=== PATIENT | female | born 1965 | race Hispanic/Latino ===

== ENCOUNTER 2016-10-03 06:34 | Emergency (ER) | payer MEDICAID ==
[2016-10-03 06:57] VITALS: BP 121/90; RESP 18; TEMP 98.4
[2016-10-03 07:06] VITALS: O2SAT 97
[2016-10-03 07:15] VITALS: PULSE 86
--- NOTE | 2016-10-03 07:15 | ED PDOC ---
HPI: General Adult Time Seen by Provider: 10/03/16 07:00 Chief Complaint (Nursing): Flu-like Symptoms Chief Complaint (Provider): cough, congestion, sore throat History Per: Patient History/Exam Limitations: no limitations Additional Complaint(s): 50yo female complaining of cough, congestion and sore throat. Patient has been taking Advil and Xyzal. Also reports general body aches, soreness. Woke up this morning with some shortness of breath and chills but no fever, sputum, chest pain. No abdominal pain or vomit. PMD: [facility] Past Medical History Reviewed: Historical Data, Nursing Documentation, Vital Signs Vital Signs: Last Vital Signs Temp 98.4 F 10/03/16 06:54 Pulse 86 10/03/16 07:15 Resp 18 10/03/16 06:54 BP 121/90 10/03/16 06:54 Pulse Ox 97 10/03/16 11:05 - Medical History PMH: Anxiety, Depression, Gall Bladder Disease (gallstones), HTN, Post Traumatic Stress Disorder, Seizures (LAST ONE ON 11/2015) Denies: Hypercholesterolemia, Chronic Kidney Disease Other PMH: cirrhosis - Surgical History Surgical History: Cholecystectomy, Endoscopy Other surgeries: knee repair, colonoscopy - Family History Family History: States: Unknown Family Hx - Social History Current smoker - smoking cessation education provided: Yes ("not packs") Alcohol: None (states quit drinking 6 months ago) Drugs: Denies - Immunization History Hx Tetanus Toxoid Vaccination: No Hx Influenza Vaccination: Yes (2014) Hx Pneumococcal Vaccination: No - Home Medications Home Medications: Ambulatory Orders Medication Instructions Recorded traZODone [trazODONE HYDROCHLORIDE] 50 mg PO HS 12/26/15 Lisinopril [Zestril] 10 mg PO DAILY #30 tab 12/30/15 traZODone [Desyrel] 50 mg PO HS PRN #30 tab 12/30/15 Escitalopram [Lexapro] 5 mg PO DAILY 03/15/16 Naproxen [Naprosyn] 500 mg PO BID PRN #20 tablet 06/10/16 Albuterol HFA [Ventolin HFA 90 1 - 2 puff IH Q4H PRN #1 bottle 10/03/16 mcg/actuation (8 g)] Ibuprofen [Motrin] 600 mg PO Q6H PRN #20 tab 10/03/16 - Allergies Allergies/Adverse Reactions: Allergies Allergy/AdvReac Type Severity Reaction Status Date / Time Penicillins Allergy Unknown RASH Verified 10/03/16 06:50 iodine Allergy RASH Verified 10/03/16 06:50 Review of Systems ROS Statement: Except As Marked, All Systems Reviewed And Found Negative Constitutional: Positive for: Chills, Other (body aches, soreness). Negative for: Fever Cardiovascular: Negative for: Chest Pain Respiratory: Positive for: Cough, Shortness of Breath. Negative for: Sputum Physical Exam - Reviewed Nursing Documentation Reviewed: Yes Vital Signs Reviewed: Yes - Physical Exam Appears: Positive for: Well, Non-toxic, No Acute Distress Head Exam: Positive for: ATRAUMATIC, NORMAL INSPECTION, NORMOCEPHALIC Skin: Positive for: Warm, Dry Eye Exam: Positive for: EOMI, PERRL ENT: Positive for: Normal ENT Inspection Neck: Positive for: Normal Cardiovascular/Chest: Positive for: Regular Rate, Rhythm Respiratory: Positive for: Normal Breath Sounds. Negative for: Rales, Wheezing , Respiratory Distress Gastrointestinal/Abdominal: Positive for: Soft. Negative for: Tenderness Extremity: Positive for: Normal ROM Neurologic/Psych: Positive for: Alert, Oriented - ECG O2 Sat by Pulse Oximetry: 97 (RA) Pulse Ox Interpretation: Normal Medical Decision Making Medical Decision Makin Impression cough, congestion, body aches; rule out influenza vs pneumonia Plan: CXR influenza A B duoneb reassess 1100 CXR IMpression from radiology report No active disease. No significant interval change compared to the prior examination(s). 1105 labs and XR report reviewed. patient is stable for discharge. Follow up with PMD. Diagnosis and discharge instructions explained to the patient. REturn if symptoms worsen. Disposition - Clinical Impression Clinical Impression: Cough - Patient ED Disposition Is Patient to be Admitted: No Counseled Patient/Family Regarding: Studies Performed, Diagnosis, Need For Followup - Disposition Referrals: [facility] [Outside] Julián Calderón MD [Primary Care Provider] - Disposition: Routine/Home Disposition Time: 09:45 Condition: IMPROVED Additional Instructions: follow up with your primary doctor in 1-2 days return to the ED with any worsening or concerning symptoms. Prescriptions: Albuterol HFA [Ventolin HFA 90 mcg/actuation (8 g)] 1 - 2 puff IH Q4H PRN #1 bottle PRN Reason: Wheezing Ibuprofen [Motrin] 600 mg PO Q6H PRN #20 tab PRN Reason: Pain, Moderate (4-7) Instructions: Cold Symptoms (ED) Forms: [facility] ED School/Work Excuse Additional Comments - Additional Comments Additional Comments: Scribe Attestation: Documented by Patrick Azevedo acting as a scribe for Carroll Salas MD. Provider Scribe Attestation: All medical record entries made by the Scribe were at my direction and personally dictated by me. I have reviewed the chart and agree that the record accurately reflects my personal performance of the history, physical exam, medical decision making, and the department course for this patient. I have also personally directed, reviewed, and agree with the discharge instructions and disposition.
[2016-10-03] MEDS ORDERED: Albuterol-Ipratrop 3 mg / 0.5 (3 ml) UD INH STA (07:33)
[2016-10-03] MEDS ORDERED: Albuterol-Ipratrop 3 mg / 0.5 (3 ml) UD ONE (07:34)
--- NOTE | 2016-10-03 09:34 | RAD ---
HISTORY: Cough. COMPARISON: 11/26/2015. TECHNIQUE: Chest PA and lateral FINDINGS: LUNGS: No active pulmonary disease. PLEURA: No significant pleural effusion identified. No pneumothorax apparent. CARDIOVASCULAR: Normal. OSSEOUS STRUCTURES: No significant abnormalities. VISUALIZED UPPER ABDOMEN: Normal. OTHER FINDINGS: None. IMPRESSION: No active disease. No significant interval change compared to the prior examination(s).
== END 2016-10-03 09:30 | disposition home or self-care (01) ==
LOC: H.ER 06:34
DX: R05 Cough (principal); J02.9 Acute pharyngitis, unspecified; R06.02 Shortness of breath; F17.200 Nicotine dependence, unspecified, uncomplicated; F32.9 Major depressive disorder, single episode, unspecified; F41.9 Anxiety disorder, unspecified; F43.10 Post-traumatic stress disorder, unspecified; I10 Essential (primary) hypertension; K74.60 Unspecified cirrhosis of liver; Z88.0 Allergy status to penicillin

== ENCOUNTER 2017-03-17 09:02 | Emergency (ER) | payer MEDICAID ==
[2017-03-17 09:07] VITALS: BMI 22.2
[2017-03-17 09:08] VITALS: BP 129/84; PULSE 61; RESP 20; TEMP 97.3; O2SAT 99
--- NOTE | 2017-03-17 09:58 | ED PDOC ---
Lower Extremity Pain/Injury Time Seen by Provider: 03/17/17 09:25 Chief Complaint (Nursing): Lower Extremity Problem/Injury Chief Complaint (Provider): Lower extremity injury History Per: Patient History/Exam Limitations: no limitations Onset/Duration Of Symptoms: Days (x1, last night) Current Symptoms Are (Timing): Still Present Pain Scale Rating Of: 9 Additional Complaint(s): Cristina Garner is a 51 year old female, with a past medical history of anxiety, hypertension and seizures, who presents to the emergency department for left foot injury onset last night. Patient reports that a picture frame fell on her left foot. She states that she wasn't wearing shoes. She took an advil last night with mild relief of pain. She is able to ambulate on foot. She denies any fever or chills. No further medical complaints. PMD: Julián Calderón Past Medical History Reviewed: Historical Data, Nursing Documentation, Vital Signs Vital Signs: Last Vital Signs Temp 97.3 F L 03/17/17 09:08 Pulse 61 03/17/17 09:08 Resp 20 03/17/17 09:08 BP 129/84 03/17/17 09:08 Pulse Ox 99 03/17/17 09:08 - Medical History PMH: Anxiety, Depression, Gall Bladder Disease (gallstones), HTN, Post Traumatic Stress Disorder, Seizures (LAST ONE ON 11/2015) Denies: Hypercholesterolemia, Chronic Kidney Disease - Surgical History Surgical History: Cholecystectomy, Endoscopy - Family History Family History: States: Unknown Family Hx - Social History Current smoker - smoking cessation education provided: Yes (light smoker >10 cigarettes daily) Alcohol: None Drugs: Denies - Immunization History Hx Tetanus Toxoid Vaccination: No Hx Influenza Vaccination: Yes (2014) Hx Pneumococcal Vaccination: No - Home Medications Home Medications: Ambulatory Orders Medication Instructions Recorded traZODone [trazODONE HYDROCHLORIDE] 50 mg PO HS 12/26/15 Lisinopril [Zestril] 10 mg PO DAILY #30 tab 12/30/15 traZODone [Desyrel] 50 mg PO HS PRN #30 tab 12/30/15 Escitalopram [Lexapro] 5 mg PO DAILY 03/15/16 Naproxen [Naprosyn] 500 mg PO BID PRN #20 tablet 06/10/16 Albuterol HFA [Ventolin HFA 90 1 - 2 puff IH Q4H PRN #1 bottle 10/03/16 mcg/actuation (8 g)] Ibuprofen [Motrin] 600 mg PO Q6H PRN #20 tab 10/03/16 Acetaminophen with Codeine 1 tab PO Q6H PRN #10 tab 03/17/17 [Tylenol with Codeine No. 3 300 mg-30 mg] Sulfamethoxazole/Trimethoprim 1 tab PO BID #14 tab 03/17/17 [Bactrim DS 800 mg-160 mg] - Allergies Allergies/Adverse Reactions: Allergies Allergy/AdvReac Type Severity Reaction Status Date / Time Penicillins Allergy Unknown RASH Verified 03/17/17 09:16 iodine Allergy RASH Verified 03/17/17 09:16 Review of Systems ROS Statement: Except As Marked, All Systems Reviewed And Found Negative Constitutional: Negative for: Fever, Chills Musculoskeletal: Positive for: Foot Pain (left) Physical Exam - Reviewed Nursing Documentation Reviewed: Yes Vital Signs Reviewed: Yes - Physical Exam Appears: Positive for: Non-toxic Head Exam: Positive for: ATRAUMATIC, NORMAL INSPECTION, NORMOCEPHALIC Skin: Positive for: Normal Color, Warm, Dry Eye Exam: Positive for: EOMI, Normal appearance, PERRL Neck: Positive for: Normal, Painless ROM, Supple Cardiovascular/Chest: Positive for: Regular Rate, Rhythm. Negative for: Murmur Respiratory: Positive for: Normal Breath Sounds. Negative for: Respiratory Distress Extremity: Positive for: Other (left foot linear abrasion on the first MTP area. ecchymosis on first digit and distal foot). Negative for: Normal ROM ( decreased ROM secondary to pain. ), Deformity (no obvious deformity. No bleeding or crepitus) Neurologic/Psych: Positive for: Alert, Oriented - ECG O2 Sat by Pulse Oximetry: 99 (RA) Pulse Ox Interpretation: Normal Medical Decision Making Medical Decision Making: Initial Impression: left foot injury Initial Plan: --Motrin tab 600 mg PO --Foot left 3 views routine [RAD] --reevaluation 1057 Foot X-ray FINDINGS: BONES: There is an acute comminuted intra-articular fracture in the proximal phalanx of the great toe. Bone alignment and mineralization are normal. JOINTS: Normal. SOFT TISSUES: Normal. OTHER FINDINGS: None. IMPRESSION: Acute comminuted intra-articular fracture in the proximal phalanx of the great toe. Pt evaluated by Podiatry in ED. Scribe Attestation: Documented by Carson Banda, acting as a scribe for Andreina Denis MD Provider Scribe Attestation: All medical record entries made by the Scribe were at my direction and personally dictated by me. I have reviewed the chart and agree that the record accurately reflects my personal performance of the history, physical exam, medical decision making, and the department course for this patient. I have also personally directed, reviewed, and agree with the discharge instructions and disposition. Disposition - Clinical Impression Clinical Impression: Phalanx fracture, foot, Abrasion of foot - Disposition Referrals: Podiatry Clinic [Outside] Disposition: Routine/Home Disposition Time: 11:38 Condition: STABLE Prescriptions: Acetaminophen with Codeine [Tylenol with Codeine No. 3 300 mg-30 mg] 1 tab PO Q6H PRN #10 tab PRN Reason: Pain, Severe (8-10) Sulfamethoxazole/Trimethoprim [Bactrim DS 800 mg-160 mg] 1 tab PO BID #14 tab Instructions: Foot Fracture in Adults (ED), Abrasion (ED) Forms: [employer] (Bahraini), [facility] ED School/Work Excuse
[2017-03-17] MEDS ORDERED: Oxycodone/Acetaminophen 5/325 mg Tab PO STA (10:44)
--- NOTE | 2017-03-17 10:58 | RAD ---
PROCEDURE: Left Foot Radiographs. HISTORY: Object fell on foot COMPARISON: None. FINDINGS: BONES: There is an acute comminuted intra-articular fracture in the proximal phalanx of the great toe. Bone alignment and mineralization are normal. JOINTS: Normal. SOFT TISSUES: Normal. OTHER FINDINGS: None. IMPRESSION: Acute comminuted intra-articular fracture in the proximal phalanx of the great toe.
[2017-03-17] MEDS ORDERED: Oxycodone/Acetaminophen 5/325 mg Tab ONE (11:01)
--- NOTE | 2017-03-17 11:30 | CP.PCM.CON ---
History of Present Illness - History of Present Illness History of Present Illness: 51 y/o female with PMHx of HTN, anxiety and breast cancer seen at bedside in ED for left foot big toe pain and swelling. Pt states she dropped a large picture frame on it last night, and noticed some bleeding. Pt states she put a bandage on it and went to sleep. Pt states she woke up today and had a difficult time putting weight down on the left foot. Pt denies F/C/N/V/CP/SOB at this time. PSH: right knee surgery, breast lumpectomy All: PCNs, iodine contrast dye Social: 5 cigs/day; denies EtOH or illicit drug use Review of Systems - Review of Systems All systems: reviewed and no additional remarkable complaints except (per HPI) Past Patient History - Infectious Disease Hx of Infectious Diseases: None - Past Medical History & Family History Past Medical History?: Yes - Past Social History Alcohol: None Drugs: Denies - CARDIAC Hx Hypercholesterolemia: No Hx Hypertension: Yes - PULMONARY Hx Respiratory Disorders: No - NEUROLOGICAL Hx Seizures: Yes (LAST ONE ON 11/2015) - HEENT Hx HEENT Problems: No - RENAL Hx Chronic Kidney Disease: No - ENDOCRINE/METABOLIC Hx Endocrine Disorders: No - HEMATOLOGICAL/ONCOLOGICAL Hx Cancer: Yes (BREAST WITH RADIATION) Hx Cirrhosis: Yes - INTEGUMENTARY Hx Dermatological Problems: No - MUSCULOSKELETAL/RHEUMATOLOGICAL Hx Musculoskeletal Disorders: No - GASTROINTESTINAL Hx Gall Bladder Disease: Yes (gallstones) - GENITOURINARY/GYNECOLOGICAL Hx Genitourinary Disorders: No - PSYCHIATRIC Hx Anxiety: Yes Hx Depression: Yes Hx Post Traumatic Stress Disorder: Yes - SURGICAL HISTORY Hx Cholecystectomy: Yes - ANESTHESIA Hx Anesthesia: Yes Hx Anesthesia Reactions: No Hx Malignant Hyperthermia: No Meds Home Medications: Home Medication List Medication Instructions Recorded Confirmed Type Acetaminophen with Codeine 1 tab PO Q6H PRN #10 tab 03/17/17 Rx [Tylenol with Codeine No. 3 300 mg-30 mg] Sulfamethoxazole/Trimethoprim 1 tab PO BID #14 tab 03/17/17 Rx [Bactrim DS 800 mg-160 mg] Allergies/Adverse Reactions: Allergies Allergy/AdvReac Type Severity Reaction Status Date / Time Penicillins Allergy Unknown RASH Verified 03/17/17 09:16 iodine Allergy RASH Verified 03/17/17 09:16 Physical Exam - Constitutional Appears: Well, Non-toxic, No Acute Distress - Extremities Exam Additional comments: Left lower extremity focused exam: Vasc: DP/PT pulses palpable 2/4. Temperature gradient warm to warm. Localized non pitting edema noted to dorsum of foot and surrounding hallux. CFT < 3 sec to all digits Derm: Ecchymosis and erythema noted to dorsomedial aspect of midfoot, extending distally to dorsal IPJ of hallux. Ecchymosis extends to proximal aspect of L 2nd digit. 2cm linear transverse superficial abrasion noted to dorsum of 1st MPJ. No malodor, no purulence expressed, no tunneling or undermining, no probe to bone Neuro: Protective sensation grossly intact Ortho: Moderate tenderness upon palpation of hallux. Patient unable to perform active or passive dorsi or plantarflexion of hallux. All other joints of foot and ankle ROM are WNL Results - Vital Signs Recent Vital Signs: Last Vital Signs Temp 97.3 F L 03/17/17 09:08 Pulse 61 03/17/17 09:08 Resp 20 03/17/17 09:08 BP 129/84 03/17/17 09:08 Pulse Ox 99 03/17/17 11:24 Assessment & Plan - Assessment and Plan (Free Text) Assessment: 51 y/o female with left foot great toe proximal phalanx nondisplaced comminuted intraarticular fracture secondary to trauma Plan: Pt seen and evaluated in ED Discussed plan with attending Dr. Avendano Tetanus status confirmed with pt due to small break in skin Cleansed superficial abrasion with saline Reviewed x-rays - reveal two longitudinal radiolucent fracture lines to left hallux proximal phalanx, intraarticular and nondisplaced in nature Applied posterior splint to LLE and dispensed crutches Advised patient to keep splint clean, dry and intact until next visit Pt advised to take Tylenol as needed for pain and not to bear any weight on the left foot Pt to follow up in [facility] clinic on 03/[address] Avendano
[2017-03-17] MEDS ORDERED: Tmp-Smz 800 mg-160 mg DS Tab PO STA (11:38)
[2017-03-17] MEDS ORDERED: Tmp-Smz 800 mg-160 mg DS Tab ONE (12:24)
== END 2017-03-17 12:30 | disposition home or self-care (01) ==
LOC: H.ER 09:02
DX: S92.412A Displaced fracture of proximal phalanx of left great toe, initial encounter for closed fracture (principal); W22.8XXA Striking against or struck by other objects, initial encounter; Y92.89 Other specified places as the place of occurrence of the external cause; F32.9 Major depressive disorder, single episode, unspecified; F43.10 Post-traumatic stress disorder, unspecified; I10 Essential (primary) hypertension; K74.60 Unspecified cirrhosis of liver; Z85.3 Personal history of malignant neoplasm of breast; Z88.0 Allergy status to penicillin

== ENCOUNTER 2017-05-24 15:44 | Emergency (ER) | payer MEDICAID ==
[2017-05-24 15:45] VITALS: BMI 22.2
[2017-05-24 16:38] VITALS: RESP 16; O2SAT 100
--- NOTE | 2017-05-24 18:37 | ED PDOC ---
HPI: Hypertension/Hypotension Time Seen by Provider: 05/24/17 17:58 Chief Complaint (Nursing): High Blood Pressure Chief Complaint (Provider): High Blood Pressure History Per: Patient History/Exam Limitations: no limitations Onset/Duration Of Symptoms: Hrs (Today) Current Symptoms Are (Timing): Still Present Associated Symptoms: denies: Chest Pain, Dyspnea Additional Complaint(s): Cristina Garner is a 51 year old female, with a past medical history of HTN, who presents to the emergency department for evaluation of high blood pressure onset today. Patient reports she went to podiatry clinic for evaluation of toe, but they told her blood pressure was too high for an evaluation. Patient has been compliant with Losartan. She has no active complaints. She denies any fever , chills, chest pain, shortness of breath, HUFF paresthesias, weakness. PMD: Julián Calderón Past Medical History Reviewed: Historical Data, Nursing Documentation, Vital Signs Vital Signs: Last Vital Signs Temp Pulse 94 H 05/24/17 16:35 Resp 16 05/24/17 16:35 BP 152/102 H 05/24/17 16:35 Pulse Ox 100 05/24/17 16:35 - Medical History PMH: Anxiety, Depression, Gall Bladder Disease (gallstones), HTN, Post Traumatic Stress Disorder, Seizures (LAST ONE ON 11/2015) Denies: Hypercholesterolemia, Chronic Kidney Disease - Surgical History Surgical History: Cholecystectomy, Endoscopy - Family History Family History: States: Unknown Family Hx - Immunization History Hx Tetanus Toxoid Vaccination: No Hx Influenza Vaccination: Yes (2014) Hx Pneumococcal Vaccination: No - Home Medications Home Medications: Ambulatory Orders Medication Instructions Recorded traZODone [trazODONE HYDROCHLORIDE] 50 mg PO HS 12/26/15 Lisinopril [Zestril] 10 mg PO DAILY #30 tab 12/30/15 traZODone [Desyrel] 50 mg PO HS PRN #30 tab 12/30/15 Escitalopram [Lexapro] 5 mg PO DAILY 03/15/16 Naproxen [Naprosyn] 500 mg PO BID PRN #20 tablet 06/10/16 Albuterol HFA [Ventolin HFA 90 1 - 2 puff IH Q4H PRN #1 bottle 10/03/16 mcg/actuation (8 g)] Ibuprofen [Motrin] 600 mg PO Q6H PRN #20 tab 10/03/16 Acetaminophen with Codeine 1 tab PO Q6H PRN #10 tab 03/17/17 [Tylenol with Codeine No. 3 300 mg-30 mg] Sulfamethoxazole/Trimethoprim 1 tab PO BID #14 tab 03/17/17 [Bactrim DS 800 mg-160 mg] - Allergies Allergies/Adverse Reactions: Allergies Allergy/AdvReac Type Severity Reaction Status Date / Time Penicillins Allergy Unknown RASH Verified 03/17/17 09:16 iodine Allergy RASH Verified 03/17/17 09:16 Review of Systems ROS Statement: Except As Marked, All Systems Reviewed And Found Negative Constitutional: Negative for: Fever, Chills Cardiovascular: Negative for: Chest Pain Respiratory: Negative for: Shortness of Breath Neurological: Negative for: Headache Physical Exam - Reviewed Nursing Documentation Reviewed: Yes Vital Signs Reviewed: Yes - Physical Exam Appears: Positive for: Well, Non-toxic, No Acute Distress Head Exam: Positive for: ATRAUMATIC, NORMAL INSPECTION, NORMOCEPHALIC Skin: Positive for: Normal Color, Warm, Dry Eye Exam: Positive for: Normal appearance, EOMI, PERRL Neck: Positive for: Painless ROM, Supple Cardiovascular/Chest: Positive for: Regular Rate, Rhythm. Negative for: Murmur Respiratory: Positive for: Normal Breath Sounds (clear auscultation b/l). Negative for: Respiratory Distress Gastrointestinal/Abdominal: Positive for: Normal Exam, Soft. Negative for: Tenderness, Guarding, Rebound Back: Positive for: Normal Inspection. Negative for: L CVA Tenderness, R CVA Tenderness, Vertebral Tenderness Extremity: Positive for: Normal ROM. Negative for: Tenderness, Pedal Edema, Deformity, Swelling Neurologic/Psych: Positive for: Alert, Oriented (x3), Gait (steady). Negative for: Motor/Sensory Deficits, Aphasia, Facial Droop, Other (no focal deficits) - ECG Interpretation Of ECG: NSR @ 76, no ST-T changes. O2 Sat by Pulse Oximetry: 100 (RA) Pulse Ox Interpretation: Normal Medical Decision Making Medical Decision Making: Initial Impression: Hypertension Initial Plan: --EKG --Catapres 0.1 mg PO --reevaluation Scribe Attestation: Documented by Carson Banda, acting as a scribe for Andreina Denis MD Provider Scribe Attestation: All medical record entries made by the Scribe were at my direction and personally dictated by me. I have reviewed the chart and agree that the record accurately reflects my personal performance of the history, physical exam, medical decision making, and the department course for this patient. I have also personally directed, reviewed, and agree with the discharge instructions and disposition. Disposition - Clinical Impression Clinical Impression: Hypertension - Disposition Referrals: [facility] [Outside] Disposition: Routine/Home Disposition Time: 18:52 Condition: GOOD Instructions: Hypertension (ED) Forms: [employer] (Turkmen), [facility] ED School/Work Excuse
[2017-05-24 19:20] VITALS: BP 129/90; PULSE 81
--- NOTE | 2017-05-26 18:32 | CARD ---
APPROVED REPORT EKG Measurement Heart [id number] <Conclusion> Normal sinus rhythm Normal ECG
== END 2017-05-24 19:19 | disposition home or self-care (01) ==
LOC: H.ER 15:44
DX: I10 Essential (primary) hypertension (principal); F32.9 Major depressive disorder, single episode, unspecified; F43.10 Post-traumatic stress disorder, unspecified; Z88.0 Allergy status to penicillin

== ENCOUNTER 2017-08-14 11:26 | Inpatient (IN) | payer MEDICAID ==
[2017-08-14 11:27] VITALS: BMI 22.2
--- NOTE | 2017-08-14 12:41 | ED PDOC ---
HPI: Psych/Substance Abuse Time Seen by Provider: 08/14/17 12:17 Chief Complaint (Nursing): Psychiatric Evaluation Chief Complaint (Provider): Depression, tired History Per: Patient Onset/Duration Of Symptoms: Days Additional Complaint(s): 51 yo female with history of HTN and depression, currently taking lexapro, presents with worsening depression. Pt reports body pain and feeling tired which she states is generally due to worsening depression. Pt denies SI/HI. Pt also takes trazadone for sleeping and clonazepam as needed. Past Medical History Reviewed: Historical Data, Nursing Documentation, Vital Signs Vital Signs: Last Vital Signs Temp 97.8 F 08/14/17 11:45 Pulse 76 08/14/17 11:45 Resp 19 08/14/17 11:45 BP 104/68 08/14/17 11:45 Pulse Ox 100 08/14/17 11:45 - Medical History PMH: Anxiety, Depression, Gall Bladder Disease (gallstones), HTN, Post Traumatic Stress Disorder, Seizures (LAST ONE ON 11/2015) Denies: Hypercholesterolemia, Chronic Kidney Disease - Surgical History Surgical History: Cholecystectomy, Endoscopy - Family History Family History: States: Unknown Family Hx - Immunization History Hx Tetanus Toxoid Vaccination: No Hx Influenza Vaccination: Yes (2014) Hx Pneumococcal Vaccination: No - Home Medications Home Medications: Ambulatory Orders Medication Instructions Recorded Cetirizine HCl [All Day Allergy 10 mg PO HS 08/14/17 Relief] Escitalopram [Lexapro] 20 mg PO HS 08/14/17 Ibuprofen [Motrin Tab] 600 mg PO Q6 PRN 08/14/17 Losartan [Cozaar] 50 mg PO DAILY 08/14/17 clonazePAM [Klonopin] 1 mg PO Q12 PRN 08/14/17 hydroCHLOROthiazide [Hydrodiuril] 25 mg PO DAILY 08/14/17 traZODone [Desyrel] 100 mg PO HS 08/14/17 - Allergies Allergies/Adverse Reactions: Allergies Allergy/AdvReac Type Severity Reaction Status Date / Time Penicillins Allergy Unknown RASH Verified 03/17/17 09:16 iodine Allergy RASH Verified 03/17/17 09:16 Physical Exam - Reviewed Nursing Documentation Reviewed: Yes Vital Signs Reviewed: Yes - Physical Exam Appears: Positive for: Well, Non-toxic, No Acute Distress Head Exam: Positive for: ATRAUMATIC, NORMAL INSPECTION, NORMOCEPHALIC Skin: Positive for: Normal Color, Warm, DRY Eye Exam: Positive for: Normal appearance ENT: Positive for: Normal ENT Inspection Neck: Positive for: Normal, Painless ROM Cardiovascular/Chest: Positive for: Regular Rate, Rhythm Respiratory: Positive for: CNT, Normal Breath Sounds Gastrointestinal/Abdominal: Positive for: Normal Exam, Soft. Negative for: Tenderness Back: Positive for: Normal Inspection Extremity: Positive for: Normal ROM Neurologic/Psych: Positive for: Alert, Oriented - Laboratory Results Result Diagrams: 08/14/17 13:18 08/14/17 13:18 - ECG O2 Sat by Pulse Oximetry: 100 Pulse Ox Interpretation: Normal Medical Decision Making Medical Decision Making: Hypokalemia - Pt given K-Dur in ER. Crisis evaluation completed. Disposition - Clinical Impression Clinical Impression: Depression, Hypokalemia - Patient ED Disposition Is Patient to be Admitted: Yes Counseled Patient/Family Regarding: Diagnosis - Disposition Disposition Time: 15:00 Condition: STABLE Forms: [employer] ([place])
[2017-08-14 13:23] LABS: BASO % 0.4 % (0.0-2.0); EOS # 0.2 K/uL (0.0-0.7); EOS % 2.3 % (0.0-4.0); HEMOGLOBIN 13.8 g/dL (12.0-16.0); LYMPH # 1.6 K/uL (1.0-4.3); LYMPH % 15.8 % (20.0-40.0); MEAN CELL VOLUME 92.7 fl (81.0-99.0); MEAN CORPUSCULAR HEMOGLOBIN 31.6 pg (27.0-31.0); MEAN CORPUSCULAR HGB CONC 34.1 g/dL (33.0-37.0); MEAN PLATELET VOLUME 9.1 fl (7.2-11.7); MONO # 0.3 K/uL (0.0-0.8); MONO % 3.3 % (0.0-10.0); NEUT # 7.7 K/uL (1.8-7.0); NEUT % 78.2 % (50.0-75.0); NRBC % 0.1 % (0.0-0.0); RBC 4.37 Mil/uL (3.80-5.20); RED CELL DISTRIBUTION WIDTH 13.4 % (11.5-14.5); WHITE BLOOD COUNT 9.8 K/uL (4.8-10.8)
[2017-08-14 13:43] LABS: ALB/GLOB RATIO 1.3 (1.0-2.1); ALBUMIN 4.5 g/dL (3.5-5.0); ALT/SGPT 22 U/L (9-52); AST/SGOT 26 U/L (14-36); BLOOD UREA NITROGEN 18 mg/dl (7-17); CALCIUM 9.3 mg/dL (8.4-10.2); GFR AFRICAN-AMERICAN > 60; GFR NON-AFRICAN AMERICAN > 60
[2017-08-14 14:39] LABS: URINE BACTERIA RARE (<OCC); URINE BILIRUBIN NEGATIVE (NEGATIVE); URINE BLOOD NEGATIVE (NEGATIVE); URINE CLARITY CLEAR (Clear); URINE COLOR STRAW (YELLOW); URINE GLUCOSE (UA) NEG (Normal); URINE LEUKOCYTE ESTERASE NEG Leu/uL (Negative); URINE PROTEIN NEGATIVE (NEGATIVE); URINE UROBILINOGEN 0.2-1.0 mg/dL (0.2-1.0)
[2017-08-14] MEDS ORDERED: Potassium Chloride 20 mEq ER Tab PO STA (14:53)
--- NOTE | 2017-08-14 15:01 | RAD ---
HISTORY: admission - 3NP COMPARISON: 10/03/2016 TECHNIQUE: Chest PA and lateral FINDINGS: LUNGS: No active pulmonary disease. PLEURA: No significant pleural effusion identified. No pneumothorax apparent. CARDIOVASCULAR: No radiographic findings to suggest acute or significant cardiovascular disease. OSSEOUS STRUCTURES: No significant abnormalities. VISUALIZED UPPER ABDOMEN: Normal. OTHER FINDINGS: None. IMPRESSION: No active disease. No significant interval change compared to the prior examination(s).
[2017-08-14] MEDS ORDERED: Potassium Chloride 20 mEq ER Tab PO ONE ×2 (15:20→15:25)
[2017-08-14 15:54] LABS: BENZODIAZEPINES, UR NEGATIVE (NEGATIVE)
[2017-08-14 15:58] LABS: BARBITURATES, UR NEGATIVE (NEGATIVE); OPIATES, UR NEGATIVE (NEGATIVE); PHENCYCLIDINE, UR NEGATIVE (NEGATIVE)
[2017-08-14 21:55] VITALS: O2SAT 99
[2017-08-14] MEDS ORDERED: DiphenhydrAMINE 50 mg/ml Inj IM PRN (23:39)
[2017-08-14] MEDS ORDERED: Magnesium Hydroxide Susp 30 ml UD PO PRN (23:39)
[2017-08-14] MEDS ORDERED: Alum-Mag Hydrox-Simethicone Susp (30 mL) PO PRN (23:39)
--- NOTE | 2017-08-15 00:50 | PCM.BM ---
<Anabel Farmer - Last Filed: 08/15/17 00:49> Treatment assets and liabiliti Patient Assests: cooperative, insightful, motivated, resourceful, self-reliant, ADL independent, negotiates basic needs, good past tx response Patient Liabilities: financial problems, poor support system, medical problems - Milieu Protocol Maintain good personal hygiene: daily Encourage regular showers, other Remind patient to perform daily oral care Conduct patient checks and document Observation sheet: Q15 minutes Maintain personal safety: every shift Educate patient to report safety concerns to staff, every shift Monitor environment for contraband/sharps Medication safety: Monitor for expected outcome, potential side effects: every shift, Assess barriers to learning: every shift, Assess readiness for medication education: every shift <Agustin Recinos - Last Filed: 08/16/17 10:03> - Diagnosis (1) Depression Status: Acute Interventions: 08/16/17 10:03 psychotherapy pharmacotherapy
[2017-08-15 06:15] LABS: HDL CHOLESTEROL 46 MG/DL (30-70)
[2017-08-15 06:26] LABS: LDL CHOLESTEROL 56 mg/dL (0-129)
--- NOTE | 2017-08-15 07:34 | CARD ---
APPROVED REPORT EKG Measurement Heart [id number] <Conclusion> Normal sinus rhythm Normal ECG
[2017-08-15 08:36] LABS: T4 6.44 ug/dl (5.5-11.0)
[2017-08-15 09:27] VITALS: RESP 18
--- NOTE | 2017-08-15 12:17 | CP.PCM.CON ---
Past Patient History - Infectious Disease Hx of Infectious Diseases: None - Past Medical History & Family History Past Medical History?: Yes - Past Social History Smoking Status: Light Smoker < 10 Cigarettes Daily - CARDIAC Hx Hypercholesterolemia: No Hx Hypertension: Yes - PULMONARY Hx Respiratory Disorders: No - NEUROLOGICAL Hx Seizures: Yes (LAST ONE ON 11/2015) - HEENT Hx HEENT Problems: No - RENAL Hx Chronic Kidney Disease: No - ENDOCRINE/METABOLIC Hx Endocrine Disorders: No - HEMATOLOGICAL/ONCOLOGICAL Hx Cancer: Yes (BREAST WITH RADIATION) Hx Cirrhosis: Yes - INTEGUMENTARY Hx Dermatological Problems: No - MUSCULOSKELETAL/RHEUMATOLOGICAL Hx Musculoskeletal Disorders: No - GASTROINTESTINAL Hx Gall Bladder Disease: Yes (gallstones) - GENITOURINARY/GYNECOLOGICAL Hx Genitourinary Disorders: No - PSYCHIATRIC Hx Substance Use: Yes - SURGICAL HISTORY Hx Cholecystectomy: Yes - ANESTHESIA Hx Anesthesia: Yes Hx Anesthesia Reactions: No Hx Malignant Hyperthermia: No Meds Allergies/Adverse Reactions: Allergies Allergy/AdvReac Type Severity Reaction Status Date / Time Penicillins Allergy Unknown RASH Verified 03/17/17 09:16 iodine Allergy RASH Verified 03/17/17 09:16 - Medications Medications: Current Medications Acetaminophen (Tylenol 325mg Tab) 650 mg PO Q4 PRN PRN Reason: Pain, moderate (4-7) Al Hydrox/Mg Hydrox/Simethicone (Maalox Plus 30 Ml) 30 ml PO Q4 PRN PRN Reason: Dyspepsia Diphenhydramine HCl (Benadryl) 50 mg IM Q6 PRN PRN Reason: Extrapyramidal S/S Unable PO Diphenhydramine HCl (Benadryl) 50 mg PO Q6 PRN PRN Reason: Extrapyramidal Symptoms Diphenhydramine HCl (Benadryl) 50 mg PO HS PRN PRN Reason: Sleep Haloperidol (Haldol) 5 mg PO Q4 PRN PRN Reason: Agitation Haloperidol Lactate (Haldol) 5 mg IM Q4 PRN PRN Reason: Agitation, Unable to Take PO Lorazepam (Ativan) 2 mg IM Q4 PRN PRN Reason: Anxiety/Agitation,Unable PO Lorazepam (Ativan) 2 mg PO Q4 PRN PRN Reason: Anxiety/Agitation Magnesium Hydroxide (Milk Of Magnesia) 30 ml PO HS PRN PRN Reason: Constipation Nicotine (Nicoderm Cq) 1 patch TD DAILY EUSEBIO Results - Vital Signs Recent Vital Signs: Last Vital Signs Temp 97.3 F L 08/15/17 09:00 Pulse 63 08/15/17 09:00 Resp 18 08/15/17 09:00 BP 100/62 08/15/17 09:00 Pulse Ox 99 08/14/17 21:35 - Labs Result Diagrams: 08/14/17 13:18 08/14/17 13:18 Labs: Laboratory Results - last 24 hr 08/14/17 08/14/17 08/14/17 05:15 13:18 13:18 WBC 9.8 D RBC 4.37 Hgb 13.8 D Hct 40.5 MCV 92.7 MCH 31.6 H MCHC 34.1 RDW 13.4 Plt Count 176 MPV 9.1 Neut % (Auto) 78.2 H Lymph % (Auto) 15.8 L [place] % (Auto) 3.3 Eos % (Auto) 2.3 Baso % (Auto) 0.4 Neut # (Auto) 7.7 H Lymph # (Auto) 1.6 [place] # (Auto) 0.3 Eos # (Auto) 0.2 Baso # (Auto) 0.0 Sodium 146 Potassium 2.9 L Chloride 97 L Carbon Dioxide 29 Anion Gap 23 H BUN 18 H Creatinine 0.9 Est GFR ( Amer) > 60 Est GFR (Non-Af Amer) > 60 Random Glucose 74 Calcium 9.3 Total Bilirubin 0.5 AST 26 ALT 22 Alkaline Phosphatase 70 Total Protein 7.9 Albumin 4.5 Globulin 3.4 Albumin/Globulin Ratio 1.3 Triglycerides 61 D Cholesterol 131 LDL Cholesterol Direct 56 HDL Cholesterol 46 Thyroxine (T4) TSH 3rd Generation 0.58 Urine Color Urine Clarity Urine pH Ur Specific [place] Urine Protein Urine Glucose (UA) Urine Ketones Urine Blood Urine Nitrate Urine Bilirubin Urine Urobilinogen Ur Leukocyte Esterase Urine RBC (Auto) Urine Microscopic WBC Urine Bacteria Urine Opiates Screen Urine Methadone Screen Ur Barbiturates Screen Ur Phencyclidine Scrn Ur Amphetamines Screen U Benzodiazepines Scrn U Oth Cocaine Metabols U Cannabinoids Screen Alcohol, Quantitative < 10 08/14/17 08/14/17 08/15/17 14:14 15:30 07:49 WBC RBC Hgb Hct MCV MCH MCHC RDW Plt Count MPV Neut % (Auto) Lymph % (Auto) [place] % (Auto) Eos % (Auto) Baso % (Auto) Neut # (Auto) Lymph # (Auto) [place] # (Auto) Eos # (Auto) Baso # (Auto) Sodium Potassium Chloride Carbon Dioxide Anion Gap BUN Creatinine Est GFR ( Amer) Est GFR (Non-Af Amer) Random Glucose Calcium Total Bilirubin AST ALT Alkaline Phosphatase Total Protein Albumin Globulin Albumin/Globulin Ratio Triglycerides Cholesterol LDL Cholesterol Direct HDL Cholesterol Thyroxine (T4) 6.44 TSH 3rd Generation 0.78 Urine Color Straw Urine Clarity Clear Urine pH 6.0 Ur Specific [place] 1.006 Urine Protein Negative Urine Glucose (UA) Neg Urine Ketones Negative Urine Blood Negative Urine Nitrate Negative Urine Bilirubin Negative Urine Urobilinogen 0.2-1.0 Ur Leukocyte Esterase Neg Urine RBC (Auto) < 1 Urine Microscopic WBC 1 Urine Bacteria Rare Urine Opiates Screen Negative Urine Methadone Screen Negative Ur Barbiturates Screen Negative Ur Phencyclidine Scrn Negative Ur Amphetamines Screen Negative U Benzodiazepines Scrn Negative U Oth Cocaine Metabols Negative U Cannabinoids Screen Negative Alcohol, Quantitative
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
[2017-08-16 09:12] VITALS: BP 99/72; PULSE 75; TEMP 97.9
--- NOTE | 2017-08-16 12:56 | PCM.PYCHDC ---
Mental Status Examination - Mental Status Examination Orientation: Person, Situation Memory: Intact Mood: Neutral Affect: Broad Speech: Appropriate Attention: WNL Association: WNL Fund of Knowledge: WNL Formal Thought Process: No Impairment Description of patient's judgement and insight: fair insight and judgment Psychotic Thoughts and Behaviors: pt denied perceptual disturbances non elicited Suicidal Ideation: No Current Homicidal Ideation?: No Discharge Summary - Discharge Note Reason for Hospitalization: on admission, pt was provided wit CBT and supportive therapy, replaced on lexapro and trazodone, pt presented with brighter affect, reported better mood, on discharge mental status was stable, denied any current suicidal ideations denied perceptual disturbances , no reported side effects of medications follow up arranged by psychiatric social worker at [facility] outpatient clinic for psychotherapy and pharmacotherapy Laboratory Data: Abnormal Lab Results 08/15/17 07:49 RPR Nonreactive Consultations:: List each consultation separately and include: 1. Reason for request. 2. Findings. 3. Follow-up Summary of Hospital Course include:: 1. Description of specific treatment plan utilized for patients during their course of treatmen. 2. Summarize the time- course for resolution of acute symptoms and/or regressed behaviors. 3. Describe issues identified and worked on during hospitalization. 4. Describe medication utilized. 5. Describe medical problems identified and treated. 6. Reassessment of suicide risk Summary of Hospital Course: pt with previous diagnosis of depression, PTSD, following up with Patrick Sherman, compliant with medications, pt reported feeling increasingly depressed due to conflict with sister and mother, pt also came to know that her son got without her being invited, pt reported low energy , anhedonia, increased sleep, on day of evaluation started to experience passive suicidal ideation without plan, she came to ER seeking help denied psychotic symptoms, denied substance use , urine toxicology is negative - Diagnosis (1) Depression Status: Acute - Final Diagnosis (DSM 5) Condition upon Discharge: STABLE 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
== END 2017-08-16 12:00 | disposition home or self-care (01) | DRG 430 ==
LOC: H.ER 11:26 → H.ERHOLD 14:54 → H.PSYCH 21:40
PROVIDERS: ADMIT Psychiatry & Neurology Psychiatry; ATTEND Psychiatry & Neurology Psychiatry
PROC: GZ58ZZZ Individual Psychotherapy, Cognitive-Behavioral (ICD-10-PCS; principal; 2017-08-14)
PROC: GZ56ZZZ Individual Psychotherapy, Supportive (ICD-10-PCS; 2017-08-14)
DX: F33.2 Major depressive disorder, recurrent severe without psychotic features (principal); E87.6 Hypokalemia; Z88.0 Allergy status to penicillin; Z91.041 Radiographic dye allergy status; I10 Essential (primary) hypertension; R45.851 Suicidal ideations; F17.210 Nicotine dependence, cigarettes, uncomplicated

== ENCOUNTER → 2018-09-19 | Day surgery (SDC) | payer MEDICAID ==
[~2018-09-19] MED LIST: Lactated Ringer's 500 ML IV ONE; Midazolam 2 MG/2 ML VIAL ONE; Propofol 10 mg/ml Inj (20 ML) ONE
[2018-09-19 10:40] VITALS: BMI 25.8
[2018-09-19 12:16] VITALS: TEMP 97; O2SAT 100
[2018-09-19 12:45] VITALS: BP 100/61; PULSE 58; RESP 13
== END | disposition home or self-care (01) ==
LOC: H.ENDO 10:32
PROVIDERS: ATTEND Internal Medicine Gastroenterology
DX: D12.5 Benign neoplasm of sigmoid colon (principal); K62.1 Rectal polyp; K29.50 Unspecified chronic gastritis without bleeding; K70.30 Alcoholic cirrhosis of liver without ascites; K75.4 Autoimmune hepatitis; Z88.0 Allergy status to penicillin; Z91.041 Radiographic dye allergy status
CPT/HCPCS: 43239; 45380; 88305; J2001; J2250; J2704; J3010; J7120